=== PATIENT | female | born 1970 | race Caucasian/White ===

== ENCOUNTER 2016-07-30 07:01 | Emergency (ER) | payer BC, OTHER ==
[~2016-07-30] VITALS: Ht 154.9 cm; Wt 76.0 kg
[~2016-07-30 07:01] MED LIST: AMBI10TA PO; CELL500T PO; CEPH500C3 PO; ESTR1.25 PO; ISOMCAP PO; PRED5 PO; ZOCO40TA PO; [UNRECOGNIZED DRUG - CODE] IV
[2016-07-30 07:02] VITALS: BP 168/87; PULSE 95; RESP 20; TEMP 98.5; O2SAT 98
[2016-07-30] MEDS ORDERED: SODIUM CHLOR 0.9% 1000 ML INJ 1,000 ML IV SCH (07:26)
[2016-07-30] MEDS ORDERED: ONDANSETRON HCL 4 MG/2 ML VIAL IVP ONE (07:30)
[2016-07-30] MEDS ORDERED: MORPHINE SULFATE 4 MG/ML INJ IV PUSH ONE (07:30)
[2016-07-30] MEDS ORDERED: SODIUM CHLORIDE 0.9% FLUSH 10 ML FLUSH IV FLUSH PRN (07:30)
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
[2016-07-30 07:50] VITALS: O2SAT 98
[2016-07-30 07:55] LABS: AUTOMATED NEUTROPHIL # 3.8 TH/MM3 (1.8-7.7); BASOPHIL % 0.3 % (0.0-2.0); EOSINOPHIL # 0.2 TH/MM3 (0-0.4); EOSINOPHIL % 3.5 % (0.0-4.0); HEMO FLAGS DIFF FINAL; LYMPH % 21.8 % (9.0-44.0); LYMPHOCYTE # 1.2 TH/MM3 (1.0-4.8); MEAN CELL VOLUME 91.8 FL (80.0-100.0); MEAN CORPUSCULAR HEMOGLOBIN 31.3 PG (27.0-34.0); MEAN CORPUSCULAR HGB CONC 34.1 % (32.0-36.0); NEUT % 66.4 % (16.0-70.0); PLATELET COUNT 212 TH/MM3 (150-450); RED CELL DISTRIBUTION WIDTH 13.4 % (11.6-17.2); WHITE BLOOD COUNT 5.7 TH/MM3 (4.0-11.0)
[2016-07-30 07:59] LABS: BLOOD, URINE NEG (NEG); GLUCOSE,URINE NEG (NEG); KETONE, URINE NEG (NEG); NITRITE,URINE NEG (NEG); PH, URINE 5.5 (5.0-8.5); SQUAMOUS EPITHELIAL CELL URINE 2 /hpf (0-5); TRANSITIONAL EPI CELLS, URINE <1 /hpf; URINE COLOR YELLOW (YELLW/STRAW)
[2016-07-30 08:06] LABS: COMMENT (UR) CULT NOT INDICATED; CULTURE IF INDICATED CULT NOT INDICATED
[2016-07-30 08:10] LABS: ALKALINE PHOSPHATASE 103 U/L (45-117); TOTAL BILIRUBIN ADULT 0.4 MG/DL (0.2-1.0)
[2016-07-30 08:12] VITALS: BP 120/71; PULSE 78; RESP 18; O2SAT 98
[2016-07-30 08:32] LABS: ALT (GPT) 128 U/L (10-53); ANION GAP 9 MEQ/L (5-15); AST (GOT) 64 U/L (15-37); BICARBONATE 25.2 MEQ/L (21.0-32.0); BLOOD UREA NITROGEN 13 MG/DL (7-18); CHLORIDE 108 MEQ/L (98-107); GLOMERULAR FILTRATION RATE 89 ML/MIN (>89); POTASSIUM 4.4 MEQ/L (3.5-5.1); SODIUM (NA) 142 MEQ/L (136-145)
[2016-07-30] MEDS ORDERED: IOHEXOL 350 MG/ML 10 ML VIAL (for RAD DIAG) IV ONE (08:56)
[2016-07-30 09:02] VITALS: RESP 18
--- NOTE | 2016-07-30 09:17 | RADRPT ---
EXAM DATE/TIME: 07/30/2016 08:55 [facility] COMPARISON: No previous studies available for comparison. INDICATIONS : Right lower quadrant pain for two days with diarrhea. IV CONTRAST: 76 cc Omnipaque 350 (iohexol) IV ORAL CONTRAST: No oral contrast ingested. RADIATION DOSE: 12.30 CTDIvol (mGy) MEDICAL HISTORY : None SURGICAL HISTORY : Hysterectomy. ENCOUNTER: Initial ACUITY: 2 days PAIN SCALE: 10/10 LOCATION: Right lower quadrant TECHNIQUE: Volumetric scanning of the abdomen and pelvis was performed. Using automated exposure control and ad justment of the mA and/or kV according to patient size, radiation dose was kept as low as reasonably achievable to obtain optimal diagnostic quality images. FINDINGS: Spleen, pancreas, right kidney are normal in appearance. Urinary bladder, small bowel, large bowel an d appendix are normal. No adenopathy or aneurysm. No adnexal masses. The lung bases are clear. The os seous structures are intact. There is a nonobstructing calculus at the lower pole of the left kidney measuring 3.3 mm. There is a tiny cortical cyst at the lower pole of the left kidney measured 6.6 mm. Mild degenerative changes of the spine. CONCLUSION: 1. Nonobstructing left renal calculus. 2. Tiny left renal cyst. 3. No inflammatory changes are seen. Tommie Cisse MD on July 30, 2016 at 9:13 Board Certified Radiologist. This report was verified electronically.
[2016-07-30] MEDS ORDERED: ZOFR4TAB3 SL (09:20)
[2016-07-30] MEDS ORDERED: DICY10 PO (09:20)
[2016-07-30] MEDS ORDERED: DICYCLOMINE HCL 20 MG/2 ML VIAL IM ONE (09:30)
== END 2016-07-30 10:17 | disposition home or self-care (01) ==
LOC: NEPE 07:01
DX: R10.31 Right lower quadrant pain (principal); R19.7 Diarrhea, unspecified
CPT/HCPCS: 74177; 80053; 81001; 83690; 85025; 96361; 96372; 96374; 96375; 99285; J0500; J2270; J2405; J7030; Q9967

== ENCOUNTER 2017-07-25 10:45 | Emergency (ER) | payer OTHER ==
[~2017-07-25] VITALS: Ht 157.5 cm; Wt 80.0 kg
[2017-07-25 10:45] VITALS: BP 146/66; PULSE 88; RESP 16; TEMP 98.3; O2SAT 97
[~2017-07-25 10:45] MED LIST changes: +DICY10 PO; +ZOFR4TAB3 SL
[2017-07-25] MEDS ORDERED: GABA100C4 PO (11:12)
[2017-07-25] MEDS ORDERED: ESTR.3 PO (11:12)
[2017-07-25] MEDS ORDERED: METF850T PO (11:12)
[2017-07-25] MEDS ORDERED: ORPHENADRINE INJ 60 MG/2 ML AMP IM ONE (11:30)
[2017-07-25] MEDS ORDERED: KETOROLAC TROMETHAMINE 60 MG/2 ML (IM) VIAL IM ONE (11:30)
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
[2017-07-25] MEDS ORDERED: ROBA500T PO (12:36)
[2017-07-25] MEDS ORDERED: IBUP1TAB7 PO (12:36)
== END 2017-07-25 12:56 | disposition home or self-care (01) ==
LOC: NEPD 10:45
DX: R51 Headache (principal); M25.551 Pain in right hip; M54.5 Low back pain; E11.9 Type 2 diabetes mellitus without complications; Z79.84 Long term (current) use of oral hypoglycemic drugs; Z86.69 Personal history of other diseases of the nervous system and sense organs; V89.2XXA Person injured in unspecified motor-vehicle accident, traffic, initial encounter
CPT/HCPCS: 72100; 73502; 96372; 99284; J1885; J2360